=== PATIENT | female | born 1980 | race Hispanic/Latino ===

== ENCOUNTER 2016-09-14 01:41 | Inpatient (IN) | payer OTHER ==
[~2016-09-14] VITALS: Ht 154.9 cm; Wt 64.9 kg
[2016-09-14] MEDS ORDERED: Oxytocin 30 Units/500 mL LR Premix IV ONE (03:05)
[2016-09-14] MEDS ORDERED: Lactated Ringer's 1,000 ML IV ONE (03:19)
[2016-09-14] MEDS ORDERED: HYDROcodone-APAP 5-325 mg Tablet PO PRN (04:15)
[2016-09-14] MEDS ORDERED: Oxytocin 30 Units/500 mL LR 30 UNITS in IV Premix 1 EACH IV PRN (04:15)
[2016-09-14] MEDS ORDERED: Carboprost 250 mCg/mL Inj IM PRN (04:15)
[2016-09-14] MEDS ORDERED: LANOlin HPA 7 Gm Ointment TOPICAL PRN (04:15)
[2016-09-14] MEDS ORDERED: Methylergonovine 0.2 mg/mL Inj IM PRN (04:15)
[2016-09-14] MEDS ORDERED: TdaP Vaccine 0.5 mL Inj IM ONE (04:15)
[2016-09-14] MEDS ORDERED: Lactated Ringer's 1,000 ML IV SCH (04:15)
[2016-09-14] MEDS ORDERED: Measles-Mumps-Rubella Vaccine 0.5 mL Inj SUBQ ONE (04:15)
[2016-09-14] MEDS ORDERED: Hemorrhage Kit, Post Partum XX ONE (04:15)
[2016-09-14] MEDS ORDERED: Benzocaine (Dermoplast) 20% 60 Gm Spray TOPICAL PRN (04:15)
[2016-09-14] MEDS ORDERED: Influenza (Adult) Vaccine 0.5 mL Syringe IM ONE (04:15)
[2016-09-14] MEDS ORDERED: Oxytocin 10 Unit/mL Inj IM PRN (04:15)
[2016-09-14] MEDS ORDERED: Witch Hazel-Glycerin Pads TOPICAL PRN (04:15)
--- NOTE | 2016-09-15 00:35 | PROG NOTE ---
[address] [address] PROGRESS NOTE PATIENT: OSKAR LEON : 1980 MR#: [id number] ADMIT: 09/14/2016 JOB ID: [id number] [facility] NOTE: DATE: 09/14/2016 at 0400 hours. HISTORY: Patient was followed prenatally in my office throughout . She reached term and headed towards the hospital in labor on September 14, 2016, although stopped at [facility] and delivered as labor was very rapid. Patient was subsequently transferred to [facility] for further evaluation and management. Pelvic examination was accomplished with the findings as noted in the history. See note. There was noted significant bilateral labial edema, yet no hematoma. There was moderately sized uterus that was medium in consistency, and a steady ooze of bleeding. There were no cervical or vaginal lacerations, note full evaluation using Betadine solution. There was, however, medium-sized second-degree perineal laceration in the midline to right side. This was bleeding. Uterine evacuation--uterine evacuation/ curettage--uterus was moderate in consistency and there was a steady ooze of bleeding. It was felt that uterus could have clots within it, particularly in that the patient had not received any Pitocin provided at [facility]. Furthermore, it was felt that assessment for intrauterine placenta and membranes would be appropriate in that ongoing bleeding was occurring and that placenta and membranes had been delivered at [facility] and I did not have access to the report inspection. Thus, with Betadine solution cleansing of the vulvovaginal area, bimanual examination was accomplished and then intrauterine exam. Approximately 150 cc of blood and clots were removed and uterus contracted much better and bleeding slowed. Note, curettage then with fingers thoroughly throughout the uterine cavity with demonstration of no palpable membrane or placental tissue and without any additional membranous or placental tissue recovered on inspection of blood and clots removed from the region. Procedure was, thus, complete. Perineal repair--after Betadine solution cleansing of the vulvovaginal region on multiple occasions, lidocaine was injected at the perineal laceration site. Using 3-0 chromic suture, then the perineal defect was closed, first with deeper running stitch and then more superficial running subcuticular stitch. Hemostasis was then noted to be complete and there was no hematoma formation. This procedure was then complete. Intravenous Pitocin infusion plus uterine massage, plus repeat intrauterine exam--Pitocin infusion was provided to help facilitate uterine contractions during the timeframe to help reduce bleeding. Ongoing frequent uterine massage was also accomplished throughout these other exams and procedures, and intrauterine examination was again accomplished to ensure no recollection of blood and clots. Approximately 50 cc was recovered, far improved from the first time, uterus was remaining much firmer and smaller. IMPRESSION: 1. following vaginal delivery at [facility]. 2. Procedures accomplished: a. Pelvic examination. b. Uterine evacuation of blood and clots, plus curettage. c. Repair of perineal laceration. d. Repeat intrauterine exam with evacuation of much smaller volume of clots. PLAN: 1. Examinations and procedures accomplished as described. 2. Will continue intravenous Pitocin infusion and ongoing fundal massage. 3. care to continue as well as care. 4. We will recheck hemoglobin , on September 15, 2016. 5. We will track blood sugars during the timeframe, fasting and 1 hour postprandial, in light of gestational diabetes that was well diet-controlled during . 6. Comprehensive metabolic panel rechecked and potassium and creatinine and CO2 were found to be normal. It was felt that lab work at [facility], i.e., specifically chemistries were not accurate and, thus, rechecked at [facility] with results more consistent with patient's age and state and general clinical condition. 7. We will check fasting blood sugar and two hour glucose tolerance test at 6+ weeks to determine if patient has diabetes when she is not , less likely at this point in time.
--- NOTE | 2016-09-15 00:39 | HP ---
[address] [address] HISTORY AND PHYSICAL PATIENT: OSKAR LEON : 1980 MR#: [id number] ADMIT: 09/14/2016 JOB ID: [id number] [facility] ADMISSION NOTE: DATE: 09/14/2016 HISTORY OF PRESENT ILLNESS: The patient is a 36-year-old, AB1 woman, with due date of September 19, 2016. She has been followed prenatally at [facility], see record for details. Note, only 16 pounds of weight gain in the . also complicated by gestational diabetes, beautifully diet managed. Given her advanced maternal age, note cell free DNA test negative, and level two sonogram negative. The patient is Rh negative in status, and has received RhoGAM at 27-1/2 weeks along. The patient went into labor late in the evening of September 13, 2016, and she and her left [place] where they live. Contractions were 7 minutes apart when they left home, closer as they reached the area of [facility] in [place]. They did stop there, and the emergency department physician reports that the cervix was in the 8-9 cm range, and the patient felt pushy. She then delivered at [facility] per emergency department physician, who also reported that placenta with membranes delivered as well. The physician reports that she did not check the vulvovaginal region for lacerations. There was only reported 100 cc of blood loss, note no Pitocin initiation per [facility] emergency department physician. ED doctor called me, and I accepted transport from [place] for exam and repair work as needed as well as for care for the patient and baby. In summary, then, this term patient delivered vaginally at [facility], and labor was rapidly progressive, and then transported to [facility] for ongoing management. PHYSICAL EXAMINATION: Height 61 inches. Last weight in the office 143 pounds. Vital signs normal. Neck: No thyromegaly. Lungs: Clear to auscultation and percussion. Heart: Regular in rate and rhythm. Abdomen: Uterine fundus below the umbilicus, moderately firm. Pelvic examination: There was noted rather significant edema of bilateral labia. There was no evidence for hematoma. Upon further inspection, there was noted a second-degree perineal laceration in the midline and towards the right side, bleeding. There were no vaginal or other labial lacerations. There was no obvious cervical laceration. Note that bimanual examination performed due to persistent oozing, blood and clots, there was noted approximately 150 cc of intrauterine clots and blood, evacuated. There was no obvious palpable placental fragments or membranous material. DIAGNOSTIC DATA: Lab report from [facility] demonstrated white blood cell count of 12.8, hemoglobin 13.6, platelets 156. Also, glucose of 128, potassium of 2.7, CO2 of 18, creatinine of 1.13, and albumin of 2.8, although total protein 7.4. These labs appeared to not necessarily be accurate, and thus, labs were repeated at [facility], i.e., comprehensive metabolic panel, with potassium level now on the floor now found to be in the 4 range, CO2 at 19, glucose of less than 110, and creatinine normal. I definitely felt that in this setting that repeat lab at [facility] were accurate when compared to those at [facility]. IMPRESSION: 1. A 39-2/7 weeks , delivered at [facility], as the patient's labor was rapid and she was unable to make it to [facility]. 2. Reproductive history: a. First -- termination. b. A 42 week vaginal delivery of a 6 pound 13 ounce baby, epidural. Induction due to post dates. Baby weighed 6 pounds 13 ounces. c. Third --current. 3. Surgical history: a. Reproductive history--see prior number letter. b. Loop electrosurgical excision procedure (LEEP). 4. Gestational diabetes, beautifully diet controlled. 5. Advanced maternal age, note cell free DNA negative, and level two sonogram negative. 6. Negative group-B strep status. 7. Rh-negative status, having received RhoGAM injection at 27 weeks along in . 8. Rubella immune status. 9. Up to date with Tdap and flu vaccination, both received in late . 10. Asthma. 11. History of depression related to "childhood stuff," no reported current issues. 12. Infertility history, for a couple of years. 13. Prior Depo-Provera therapy for control, planned control method for timeframe now? 14. Prior Chlamydia infection (2012), treated, Chlamydia test negative during . 15. Prior smoker, stopped in 2003. 16. No known drug allergies. 17. Family history of diabetes (daughter), thyroid disease (daughter), and lung cancer (maternal grandmother). PLAN: The patient was admitted to [facility] on September 14, 2016, after delivery vaginally at [facility]. She was subsequently transported to my service at [facility] for further assessment, examination, repair work if needed, intrauterine procedures if needed, for general and care.
[2016-09-15 07:23] LABS: Mean Corpuscular Hemoglobin 30.9 pg (27.0-35.0); Mean Corpuscular Volume 91.3 fL (81-100)
[2016-09-15] MEDS ORDERED: IBUP-1827 PO (10:25)
--- NOTE | 2016-09-15 10:25 | PCM.DIOB ---
Obstetrical Disch Instruction Dates of Hospitalization Date of Hospital Admission Sep 14, 2016 at 02:24 Providers Admitting Physician: Lonnie Esparza MD Primary Care Physician: Lonnie Esparza MD Attending Physician: Lonnie Esparza MD Discharge Diagnosis Problems: (1) Vaginal delivery Status: Acute ICD Code: O80 Diet Discharge Diet: No restrictions Activity Discharge Activity-General: Pelvic Rest for 6 weeks Dressing and Incisional Care Hygiene: May shower, Perineal care, Sitz bath, Dermoplast spray, Witch Sivan pads, Ice Follow Up Plan Follow-up appointment: Weeks (Follow up in 6 weeks for check up with Dr. Esparza at [facility].) Call your provider for: Fever or Chills, Shortness of breath, Red painful breasts Lonnie Esparza MD Sep 15, 2016 10:25
[2016-09-15 10:27] VITALS: BP 106/68; PULSE 89; RESP 15
--- NOTE | 2016-09-16 20:48 | DIS ---
[address] [address] DISCHARGE SUMMARY PATIENT: OSKAR LEON : 1980 MR#: [id number] ADMIT: 09/14/2016 JOB ID: [id number] DIS: 09/15/2016 DISCHARGE DIAGNOSES: 1. Term , delivered at another institution, with recovery at [facility]. 2. Gestational diabetes. PROCEDURES PERFORMED DURING HOSPITALIZATION: 1. Post delivery pelvic examination. 2. Uterine evacuation of blood clot by curettage. 3. Repair of perineal laceration. HOSPITAL COURSE: The patient was admitted to [facility] after delivering the baby vaginally at [facility] while en route to [facility]. Mother and baby were thus admitted, and I performed exam and procedures as accomplished. During the timeframe, the patient did well, with stable vitals, afebrile, with reasonable bleeding and pain management, ambulating and voiding, and with hemoglobin of just less than 10. She handled baby well. She was interested in going home on the 1st day, i.e. on September 15, 2016. DISCHARGE PROGRAM: Patient will call p.r.n., otherwise will follow up at six weeks for checkup with Dr. Esparza at [facility]. She will observe pelvic rest for 6 weeks. Discharge medication is that of ibuprofen 600 mg ( prescription written), She will also use vitamin daily, note that she has supply at home). Note that the patient should continue on diabetic diet and track blood sugars fasting and 1 hour postprandial for at least a few weeks, to report in if significantly elevated. Note that we will plan fasting blood sugar and 2 hour glucose tolerance tests once at least six weeks to determine if, in fact, the patient is diabetic all the time, although not suspected. MARTY
== END 2016-09-15 10:59 | disposition home or self-care (01) | DRG 542 ==
LOC: FBC 02:24
PROVIDERS: ADMIT Obstetrics & Gynecology; ATTEND Obstetrics & Gynecology
PROC: 0W3R7ZZ Control Bleeding in Genitourinary Tract, Via Natural or Artificial Opening (ICD-10-PCS; principal; 2016-09-14)
PROC: 0KQM0ZZ Repair Perineum Muscle, Open Approach (ICD-10-PCS; 2016-09-14)
DX: O70.1 Second degree perineal laceration during delivery (principal); O72.2 Delayed and secondary postpartum hemorrhage; O24.430 Gestational diabetes mellitus in the puerperium, diet controlled